=== PATIENT | male | born 1995 | race Hispanic/Latino ===

== ENCOUNTER 2022-05-28 20:17 | Emergency (ER) | payer SELFPAY ==
[~2022-05-28 20:17] MED LIST: NO HOME MEDS
== END 2022-05-28 20:42 | disposition left against medical advice (07) | DRG 951 ==
LOC: ED 20:17 → LWOBS 20:42
DX: Z53.21 Procedure and treatment not carried out due to patient leaving prior to being seen by health care provider (principal)